=== PATIENT | female | born 1985 | race African-American/Black ===

== ENCOUNTER 2017-12-17 04:03 | Emergency (ER) | payer SELFPAY ==
[~2017-12-17] VITALS: Ht 162.6 cm; Wt 136.0 kg
[2017-12-17] MEDS ORDERED: SODIUM CHLORIDE 0.9% 1,000 ML IV ONE ×2 (05:04→08:31)
[2017-12-17] MEDS ORDERED: KETOROLAC 30MG/ML VIAL IV STA (05:04)
[2017-12-17] MEDS ORDERED: ONDANSETRON HCL 4MG/2ML INJ IV STA ×2 (05:04→05:50)
[2017-12-17 05:33] LABS: BASOPHILS % 0.8 % (0.0-2.0); EOSINOPHILS % 0.4 % (0.0-5.0); HEMOGLOBIN. 13.7 g/dL (12.0-16.0); LYMPHOCYTES % 18.9 % (20.0-50.0); MEAN CORPUSCULAR HEMOGLOBIN 28.8 pg (28.0-32.0); MEAN PLATELET VOLUME 7.8 fl (7.4-10.4); MONOCYTES % 4.2 % (2.0-8.0); NEUTROPHILS % 75.7 % (40.0-76.0); PLATELET 388 x1000/uL (130-400); RED BLOOD CELL COUNT 4.77 mill/uL (4.2-5.4); RED CELL DISTRIBUTION WIDTH 14.1 % (11.6-14.6)
[2017-12-17 05:45] LABS: CHLORIDE 101 mEq/L (98-107); INR 1.1; PROTHROMBIN TIME 10.7 sec (9.1-11.1)
[2017-12-17 05:51] LABS: ETHANOL BLOOD < 10 mg/dL
[2017-12-17 05:55] LABS: HCG SCREEN NEGATIVE
[2017-12-17 07:06] LABS: CLARITY URINE CLEAR (CLEAR); COLOR URINE YELLOW (YELLOW); KETONES URINE TRACE (NEGATIVE); LEUKOCYTE ESTERASE URINE NEGATIVE (NEGATIVE); NITRITE URINE NEGATIVE (NEGATIVE); OCCULT BLOOD URINE TRACE (NEGATIVE); PH URINE 8.5 (4.5-8.0); PROTEIN URINE NEGATIVE (NEGATIVE); SPECIFIC GRAVITY URINE 1.011 (1.005-1.030); UROBILINOGEN URINE 0.2 E.U./dL (0.2-1.0)
[2017-12-17] MEDS ORDERED: FAMOTIDINE 20MG/2ML VIAL IV ONE (08:45)
[2017-12-17] MEDS ORDERED: METOCLOPRAMIDE HCL 10MG/2ML VIAL IV ONE (08:45)
[2017-12-17] MEDS ORDERED: ACETAMINOPHEN WITH CODEINE 300/30MG TABLET PO ONE (10:00)
[2017-12-17 10:35] VITALS: BP 152/88
== END 2017-12-17 10:43 | disposition home or self-care (01) ==
LOC: ER 04:03
DX: R10.84 Generalized abdominal pain (principal); R11.2 Nausea with vomiting, unspecified; R03.0 Elevated blood-pressure reading, without diagnosis of hypertension; F12.90 Cannabis use, unspecified, uncomplicated; Z87.19 Personal history of other diseases of the digestive system
CPT/HCPCS: 36415; 74176; 80053; 81003; 83690; 84703; 85025; 85610; 96361; 96374; 96375; 99285; G0482; J1885; J2405; J2765; J3490; J7030; Z7610

== ENCOUNTER 2020-11-10 12:16 | Inpatient (IN) | payer MEDICAID, OTHER ==
[~2020-11-10] VITALS: Ht 162.6 cm; Wt 159.2 kg
[~2020-11-10 12:16] MED LIST: FAMO-135 MT; HYDR-4346 MT; IBUP-2028 MT; ONDA4TAB5 MT
[2020-11-10] MEDS ORDERED: SODIUM CHLORIDE 0.9% 1,000 ML IV ONE ×2 (12:45→13:00)
[2020-11-10] MEDS ORDERED: MORPHINE SULFATE 4 MG/ML CPJ (NOT FOR IM USE) IV STA ×2 (12:59→14:48)
[2020-11-10] MEDS ORDERED: ONDANSETRON HCL 4MG/2ML INJ IV STA ×2 (12:59→14:48)
[2020-11-10 14:23] LABS: BASOPHILS % 0.6 % (0.0-2.0); HEMATOCRIT. 39.7 % (36.0-48.0); HEMOGLOBIN. 13.7 g/dL (12.0-16.0); LYMPHOCYTES % 9.8 % (20.0-50.0); MEAN CORPUSCULAR HEMOGLOBIN 29.6 pg (28.0-32.0); MEAN CORPUSCULAR VOLUME 85.3 fL (81.0-99.0); MEAN PLATELET VOLUME 8.7 fl (7.4-10.4); MONOCYTES % 4.4 % (2.0-8.0); NEUTROPHILS % 85.2 % (40.0-76.0); PLATELET 399 x1000/uL (130-400); RED BLOOD CELL COUNT 4.65 mill/uL (4.2-5.4); RED CELL DISTRIBUTION WIDTH 13.6 % (11.6-14.6)
[2020-11-10 14:35] LABS: CHLORIDE 103 mEq/L (98-107)
[2020-11-10 14:46] LABS: INR 1.1; PROTHROMBIN TIME 11.7 sec (9.6-11.0)
[2020-11-10] MEDS ORDERED: PIPERACILLIN/TAZ 3.375G PREMIX 50 ML IV ONE (15:00)
[2020-11-10 15:37] LABS: CLARITY URINE CLEAR (CLEAR); COLOR URINE ORANGE (YELLOW); KETONES URINE 3+ (NEGATIVE); LEUKOCYTE ESTERASE URINE NEGATIVE (NEGATIVE); NITRITE URINE NEGATIVE (NEGATIVE); OCCULT BLOOD URINE 3+ (NEGATIVE); PROTEIN URINE NEGATIVE (NEGATIVE); SPECIFIC GRAVITY URINE 1.025 (1.005-1.030)
[2020-11-10 15:50] LABS: AMYLASE 64 IU/L (25-115)
[2020-11-10] MEDS ORDERED: MAGNESIUM/ALUMINUM HYDROXIDE/SIMETHICONE 30ML UDC PO PRN (17:45)
[2020-11-10] MEDS ORDERED: GUAIFENESIN 200MG/10ML SUGAR FREE UDC PO PRN (17:45)
[2020-11-10] MEDS ORDERED: DOCUSATE SODIUM 100MG CAPSULE PO PRN (17:45)
[2020-11-10] MEDS ORDERED: IPRATROPIUM/ALBUTEROL 0.5-3(2.5)MG/3ML NEB HHN PRN (17:45)
[2020-11-10] MEDS: CLONIDINE 0.1MG TABLET PO PRN ×2 (18:10→23:33)
[2020-11-10] MEDS: ENOXAPARIN 30MG/0.3ML SYR SUBCUT SCH (18:10)
[2020-11-10] MEDS: LORAZEPAM 2MG/ML CPJ IV PRN (18:10)
[2020-11-10] MEDS: MORPHINE SULFATE 2 MG/ML CPJ (NOT FOR IM USE) IV PRN ×2 (18:12→23:32)
[2020-11-10] MEDS: DEXT 5%/0.45% NACL 1000ML 1,000 ML IV SCH (18:12)
[2020-11-10] MEDS: SODIUM CHLORIDE 0.9% INJ 3ML FLUSH IVF SCH (22:00)
[2020-11-10] MEDS: PIPERACILLIN/TAZ 3.375G PREMIX 50 ML IV SCH (23:15)
[2020-11-11] VITALS (7 sets, daily range): BP systolic 137–183; BP diastolic 63–87
[2020-11-11] MEDS: DEXT 5%/0.45% NACL 1000ML 1,000 ML IV SCH (03:46)
[2020-11-11] MEDS: ACETAMINOPHEN 325MG TABLET PO PRN (04:11)
[2020-11-11 05:20] LABS: BASOPHILS % 0.6 % (0.0-2.0); EOSINOPHILS % 0.3 % (0.0-5.0); HEMATOCRIT. 39.3 % (36.0-48.0); HEMOGLOBIN. 13.4 g/dL (12.0-16.0); LYMPHOCYTES % 12.8 % (20.0-50.0); MEAN CORPUSCULAR HEMOGLOBIN 29.1 pg (28.0-32.0); MEAN CORPUSCULAR VOLUME 85.5 fL (81.0-99.0); MEAN PLATELET VOLUME 8.1 fl (7.4-10.4); MONOCYTES % 5.2 % (2.0-8.0); NEUTROPHILS % 81.1 % (40.0-76.0); PLATELET 358 x1000/uL (130-400); RED BLOOD CELL COUNT 4.59 mill/uL (4.2-5.4); RED CELL DISTRIBUTION WIDTH 13.7 % (11.6-14.6)
[2020-11-11 05:23] LABS: CHLORIDE 103 mEq/L (98-107)
[2020-11-11] MEDS: PIPERACILLIN/TAZ 3.375G PREMIX 50 ML IV SCH (06:16)
[2020-11-11] MEDS: ENOXAPARIN 30MG/0.3ML SYR SUBCUT SCH (06:17)
[2020-11-11] MEDS: ONDANSETRON HCL 4MG/2ML INJ IV PRN ×3 (06:17→22:39)
[2020-11-11] MEDS: SODIUM CHLORIDE 0.9% INJ 3ML FLUSH IVF SCH ×3 (06:19→20:32)
[2020-11-11] MEDS: MORPHINE SULFATE 2 MG/ML CPJ (NOT FOR IM USE) IV PRN ×3 (11:09→22:39)
[2020-11-11 16:19] LABS: HEPATITIS B SURFACE ANTIGEN NEGATIVE
[2020-11-11] MEDS: HYDRALAZINE 20MG/ML VIAL IV PRN (16:42)
[2020-11-11] MEDS: ENOXAPARIN 40MG/0.4ML SYR SUBCUT SCH (18:19)
[2020-11-11] MEDS: PIPERACILLIN/TAZOBACTAM 3.375G in DEXT 5% WATER 50ML IV SCH (18:19)
[2020-11-11] MEDS: LORAZEPAM 2MG/ML CPJ IV PRN (20:31)
[2020-11-11] MEDS: DIPHENHYDRAMINE 50MG/ML VIAL IV PRN (20:33)
[2020-11-12] VITALS: BP 159/90
[2020-11-12] MEDS: ACETAMINOPHEN 325MG TABLET PO PRN ×2 (00:33→16:04)
[2020-11-12] MEDS: LORAZEPAM 2MG/ML CPJ IV PRN ×2 (02:29→20:41)
[2020-11-12] MEDS: DIPHENHYDRAMINE 50MG/ML VIAL IV PRN (02:32)
[2020-11-12 04:00] VITALS: BP 129/78
[2020-11-12] MEDS: PIPERACILLIN/TAZOBACTAM 3.375G in DEXT 5% WATER 50ML IV SCH ×3 (05:41→20:52)
[2020-11-12] MEDS: ENOXAPARIN 40MG/0.4ML SYR SUBCUT SCH ×2 (05:41→17:50)
[2020-11-12] MEDS: MORPHINE SULFATE 2 MG/ML CPJ (NOT FOR IM USE) IV PRN ×3 (05:41→17:50)
[2020-11-12] MEDS: DEXT 5%/0.45% NACL 1000ML 1,000 ML IV SCH ×2 (05:42→09:06)
[2020-11-12] MEDS: SODIUM CHLORIDE 0.9% INJ 3ML FLUSH IVF SCH ×3 (05:43→22:00)
[2020-11-12 07:30] LABS: CHLORIDE 103 mEq/L (98-107)
[2020-11-12 07:41] LABS: BASOPHILS % 0.4 % (0.0-2.0); EOSINOPHILS % 0.1 % (0.0-5.0); HEMATOCRIT. 40.3 % (36.0-48.0); HEMOGLOBIN. 13.5 g/dL (12.0-16.0); LYMPHOCYTES % 20.6 % (20.0-50.0); MEAN CORPUSCULAR HEMOGLOBIN 29.3 pg (28.0-32.0); MEAN CORPUSCULAR VOLUME 87.5 fL (81.0-99.0); MEAN PLATELET VOLUME 8.4 fl (7.4-10.4); MONOCYTES % 5.4 % (2.0-8.0); NEUTROPHILS % 73.5 % (40.0-76.0); PLATELET 352 x1000/uL (130-400); RED BLOOD CELL COUNT 4.61 mill/uL (4.2-5.4); RED CELL DISTRIBUTION WIDTH 13.8 % (11.6-14.6)
[2020-11-12 08:00] VITALS: BP 203/79
[2020-11-12 08:57] LABS: T4 FREE 1.26 ng/dL (0.76-1.46)
[2020-11-12] MEDS: CLONIDINE 0.1MG TABLET PO PRN ×2 (09:05→16:04)
[2020-11-12] MEDS: HYDRALAZINE 20MG/ML VIAL IV PRN (09:05)
[2020-11-12 12:00] VITALS: BP 171/96
[2020-11-12] MEDS ORDERED: KCL 20MEQ/100ML PREMIX 100 ML IV NR (12:00)
[2020-11-12] MEDS ORDERED: IOHEXOL-300 100 ML BOTTLE ONE (13:52)
[2020-11-12 15:21] LABS: CREATINE KINASE 138 IU/L (26-192)
[2020-11-12 15:22] LABS: CREATINE KINASE MB FRACTION < 1.0 ng/mL (0.5-3.6)
[2020-11-12 16:00] VITALS: BP 127/88
[2020-11-12 20:00] VITALS: BP 141/82
[2020-11-12 20:36] LABS: HEMATOCRIT 42.1 % (36.0-48.0); HEMOGLOBIN 14.3 g/dL (12.0-16.0); MEAN CORPUSCULAR HEMOGLOBIN 28.9 pg (28.0-32.0); MEAN CORPUSCULAR VOLUME 85.4 fL (81.0-99.0); PLATELET 329 x1000/uL (130-400); RED BLOOD CELL COUNT 4.93 mill/uL (4.2-5.4); RED CELL DISTRIBUTION WIDTH 13.9 % (11.6-14.6)
[2020-11-12 20:47] LABS: CHLORIDE 101 mEq/L (98-107)
[2020-11-13] VITALS: BP 141/90
[2020-11-13] MEDS: MORPHINE SULFATE 2 MG/ML CPJ (NOT FOR IM USE) IV PRN ×3 (02:07→20:52)
[2020-11-13] MEDS: LORAZEPAM 2MG/ML CPJ IV PRN ×2 (02:10→21:06)
[2020-11-13] MEDS: DIPHENHYDRAMINE 50MG/ML VIAL IV PRN ×2 (02:11→21:13)
[2020-11-13 04:00] VITALS: BP 157/94
[2020-11-13] MEDS: ONDANSETRON HCL 4MG/2ML INJ IV PRN ×2 (05:10→20:52)
[2020-11-13] MEDS: PIPERACILLIN/TAZOBACTAM 3.375G in DEXT 5% WATER 50ML IV SCH ×3 (05:11→21:00)
[2020-11-13] MEDS: SODIUM CHLORIDE 0.9% INJ 3ML FLUSH IVF SCH ×3 (05:12→22:00)
[2020-11-13] MEDS: ENOXAPARIN 40MG/0.4ML SYR SUBCUT SCH ×2 (05:12→17:50)
[2020-11-13 07:54] LABS: CHLORIDE 99 mEq/L (98-107)
[2020-11-13 07:59] LABS: BASOPHILS % 0.6 % (0.0-2.0); EOSINOPHILS % 0.3 % (0.0-5.0); HEMATOCRIT. 43.2 % (36.0-48.0); HEMOGLOBIN. 14.6 g/dL (12.0-16.0); LYMPHOCYTES % 19.6 % (20.0-50.0); MEAN CORPUSCULAR HEMOGLOBIN 29.2 pg (28.0-32.0); MEAN CORPUSCULAR VOLUME 86.6 fL (81.0-99.0); MEAN PLATELET VOLUME 8.6 fl (7.4-10.4); MONOCYTES % 7.4 % (2.0-8.0); NEUTROPHILS % 72.1 % (40.0-76.0); PLATELET 369 x1000/uL (130-400); RED BLOOD CELL COUNT 4.99 mill/uL (4.2-5.4); RED CELL DISTRIBUTION WIDTH 13.7 % (11.6-14.6)
[2020-11-13 08:00] VITALS: BP 151/89
[2020-11-13 08:04] LABS: CREATINE KINASE 99 IU/L (26-192)
[2020-11-13 08:06] LABS: CREATINE KINASE MB FRACTION < 1.0 ng/mL (0.5-3.6)
[2020-11-13] MEDS ORDERED: DEXTROSE 50% WATER 50ML SYRINGE IV PRN (08:45)
[2020-11-13] MEDS: DEXT 5%/0.45% NACL 1000ML 1,000 ML IV SCH ×2 (09:18→17:18)
[2020-11-13] MEDS ORDERED: NALOXONE HCL 0.4MG/ML VIAL IV PRN (09:30)
[2020-11-13] MEDS ORDERED: POTASSIUM CHLORIDE 20MEQ TABLET SR PO NR (10:00)
[2020-11-13] MEDS: HYDRALAZINE 20MG/ML VIAL IV PRN (11:32)
[2020-11-13 12:00] VITALS: BP 166/99
[2020-11-13] MEDS: BLOOD SUGAR DIAGNOSTIC STRIP TEST SCH ×3 (13:09→21:10)
[2020-11-13] MEDS: INSULIN LISPRO 100 UNITS/ML SUBCUT SCH ×3 (13:13→21:00)
[2020-11-13 16:00] VITALS: BP 145/82
[2020-11-13] MEDS: METOCLOPRAMIDE HCL 10MG/2ML VIAL IV SCH ×2 (17:43→23:05)
[2020-11-13 18:59] LABS: CREATINE KINASE 86 IU/L (26-192)
[2020-11-13 19:01] LABS: CREATINE KINASE MB FRACTION < 1.0 ng/mL (0.5-3.6)
[2020-11-13 20:00] VITALS: BP 174/106
[2020-11-13] MEDS: CLONIDINE 0.1MG TABLET PO PRN (20:52)
[2020-11-13] MEDS: ACETAMINOPHEN 325MG TABLET PO PRN (20:53)
[2020-11-14] VITALS: BP 148/84
[2020-11-14 04:00] VITALS: BP 167/67
[2020-11-14] MEDS: DEXT 5%/0.45% NACL 1000ML 1,000 ML IV SCH ×2 (04:03→12:22)
[2020-11-14] MEDS: METOCLOPRAMIDE HCL 10MG/2ML VIAL IV SCH ×4 (05:15→23:00)
[2020-11-14] MEDS: SODIUM CHLORIDE 0.9% INJ 3ML FLUSH IVF SCH ×2 (05:15→22:00)
[2020-11-14] MEDS: CLONIDINE 0.1MG TABLET PO PRN (05:15)
[2020-11-14] MEDS: PIPERACILLIN/TAZOBACTAM 3.375G in DEXT 5% WATER 50ML IV SCH ×3 (05:15→21:35)
[2020-11-14] MEDS: MORPHINE SULFATE 2 MG/ML CPJ (NOT FOR IM USE) IV PRN ×2 (05:24→21:35)
[2020-11-14] MEDS: BLOOD SUGAR DIAGNOSTIC STRIP TEST SCH ×4 (05:26→21:55)
[2020-11-14] MEDS: ENOXAPARIN 40MG/0.4ML SYR SUBCUT SCH ×2 (05:26→18:11)
[2020-11-14] MEDS: INSULIN LISPRO 100 UNITS/ML SUBCUT SCH ×4 (05:39→22:00)
[2020-11-14 08:00] VITALS: BP 146/86
[2020-11-14 09:16] LABS: BASOPHILS % 0.7 % (0.0-2.0); EOSINOPHILS % 0.1 % (0.0-5.0); HEMATOCRIT. 39.8 % (36.0-48.0); LYMPHOCYTES % 20.1 % (20.0-50.0); MEAN CORPUSCULAR HEMOGLOBIN 29.9 pg (28.0-32.0); MEAN CORPUSCULAR VOLUME 84.8 fL (81.0-99.0); MEAN PLATELET VOLUME 8.1 fl (7.4-10.4); MONOCYTES % 8.6 % (2.0-8.0); NEUTROPHILS % 70.5 % (40.0-76.0); PLATELET 337 x1000/uL (130-400)
[2020-11-14 09:26] LABS: CHLORIDE 98 mEq/L (98-107)
[2020-11-14] MEDS ORDERED: POTASSIUM CHLORIDE 20MEQ TABLET SR PO NR (11:00)
[2020-11-14 12:00] VITALS: BP 115/70
[2020-11-14 16:00] VITALS: BP 124/87
[2020-11-14 17:36] LABS: HEMATOCRIT 39.8 % (36.0-48.0); HEMOGLOBIN 13.9 g/dL (12.0-16.0); MEAN CORPUSCULAR HEMOGLOBIN 29.7 pg (28.0-32.0); MEAN CORPUSCULAR VOLUME 84.8 fL (81.0-99.0); PLATELET 309 x1000/uL (130-400); RED BLOOD CELL COUNT 4.69 mill/uL (4.2-5.4); RED CELL DISTRIBUTION WIDTH 13.8 % (11.6-14.6)
[2020-11-14 17:53] LABS: CHLORIDE 99 mEq/L (98-107)
[2020-11-14 20:00] VITALS: BP 128/83
[2020-11-14] MEDS: LORAZEPAM 2MG/ML CPJ IV PRN (21:41)
[2020-11-14] MEDS: DIPHENHYDRAMINE 50MG/ML VIAL IV PRN (22:59)
[2020-11-15] VITALS: BP 94/56
[2020-11-15 04:35] VITALS: BP 116/78
[2020-11-15] MEDS: METOCLOPRAMIDE HCL 10MG/2ML VIAL IV SCH ×4 (05:15→23:08)
[2020-11-15] MEDS: PIPERACILLIN/TAZOBACTAM 3.375G in DEXT 5% WATER 50ML IV SCH ×3 (05:15→21:25)
[2020-11-15] MEDS: BLOOD SUGAR DIAGNOSTIC STRIP TEST SCH ×4 (05:21→20:06)
[2020-11-15] MEDS: INSULIN LISPRO 100 UNITS/ML SUBCUT SCH ×4 (05:30→20:06)
[2020-11-15] MEDS: ENOXAPARIN 40MG/0.4ML SYR SUBCUT SCH ×2 (05:34→17:48)
[2020-11-15] MEDS: SODIUM CHLORIDE 0.9% INJ 3ML FLUSH IVF SCH ×3 (05:34→21:25)
[2020-11-15 08:00] VITALS: BP 131/84
[2020-11-15 08:39] LABS: BASOPHILS % 0.6 % (0.0-2.0); EOSINOPHILS % 1.3 % (0.0-5.0); LYMPHOCYTES % 26.2 % (20.0-50.0); MEAN PLATELET VOLUME 8.5 fl (7.4-10.4); MONOCYTES % 9.6 % (2.0-8.0); NEUTROPHILS % 62.3 % (40.0-76.0); PLATELET 304 x1000/uL (130-400); RED BLOOD CELL COUNT 4.82 mill/uL (4.2-5.4); RED CELL DISTRIBUTION WIDTH 13.8 % (11.6-14.6)
[2020-11-15 08:47] LABS: CHLORIDE 101 mEq/L (98-107)
[2020-11-15] MEDS ORDERED: POTASSIUM CHLORIDE 20MEQ TABLET SR PO SCH (09:45)
[2020-11-15] MEDS: DEXT 5%/0.45% NACL 1000ML 1,000 ML IV SCH ×3 (10:39→17:45)
[2020-11-15 12:00] VITALS: BP 145/93
[2020-11-15] MEDS: MORPHINE SULFATE 2 MG/ML CPJ (NOT FOR IM USE) IV PRN ×2 (13:59→23:32)
[2020-11-15] MEDS: ONDANSETRON HCL 4MG/2ML INJ IV PRN ×2 (15:15→21:25)
[2020-11-15 16:00] VITALS: BP 154/98
[2020-11-15] MEDS: LORAZEPAM 2MG/ML CPJ IV PRN ×2 (16:45→23:50)
[2020-11-15] MEDS: CLONIDINE 0.1MG TABLET PO PRN (19:56)
[2020-11-15] MEDS: DIPHENHYDRAMINE 50MG/ML VIAL IV PRN (19:56)
[2020-11-15] MEDS: ACETAMINOPHEN 325MG TABLET PO PRN (19:57)
[2020-11-15 20:00] VITALS: BP 165/98
[2020-11-15 23:51] LABS: CHLORIDE 98 mEq/L (98-107); HEMATOCRIT 42.2 % (36.0-48.0); HEMOGLOBIN 14.6 g/dL (12.0-16.0); MEAN CORPUSCULAR HEMOGLOBIN 29.5 pg (28.0-32.0); MEAN CORPUSCULAR VOLUME 85.2 fL (81.0-99.0); PLATELET 353 x1000/uL (130-400); RED BLOOD CELL COUNT 4.96 mill/uL (4.2-5.4); RED CELL DISTRIBUTION WIDTH 13.6 % (11.6-14.6)
[2020-11-16] VITALS: BP 158/89
[2020-11-16] MEDS: DEXT 5%/0.45% NACL 1000ML 1,000 ML IV SCH ×2 (03:45→13:43)
[2020-11-16] MEDS: CLONIDINE 0.1MG TABLET PO PRN (03:52)
[2020-11-16] MEDS: ONDANSETRON HCL 4MG/2ML INJ IV PRN (03:52)
[2020-11-16 04:00] VITALS: BP 162/96
[2020-11-16] MEDS: METOCLOPRAMIDE HCL 10MG/2ML VIAL IV SCH ×3 (05:22→17:47)
[2020-11-16] MEDS: ENOXAPARIN 40MG/0.4ML SYR SUBCUT SCH ×2 (05:22→17:47)
[2020-11-16] MEDS: MORPHINE SULFATE 2 MG/ML CPJ (NOT FOR IM USE) IV PRN (05:23)
[2020-11-16] MEDS: LORAZEPAM 2MG/ML CPJ IV PRN ×3 (05:34→20:34)
[2020-11-16] MEDS: BLOOD SUGAR DIAGNOSTIC STRIP TEST SCH ×4 (05:35→20:25)
[2020-11-16] MEDS: INSULIN LISPRO 100 UNITS/ML SUBCUT SCH ×4 (05:35→20:31)
[2020-11-16] MEDS: SODIUM CHLORIDE 0.9% INJ 3ML FLUSH IVF SCH ×3 (05:36→20:34)
[2020-11-16 08:00] VITALS: BP 114/69
[2020-11-16 12:00] VITALS: BP 110/75
[2020-11-16 12:27] LABS: BASOPHILS % 0.4 % (0.0-2.0); EOSINOPHILS % 0.7 % (0.0-5.0); HEMATOCRIT. 39.5 % (36.0-48.0); HEMOGLOBIN. 13.5 g/dL (12.0-16.0); LYMPHOCYTES % 19.3 % (20.0-50.0); MEAN CORPUSCULAR VOLUME 84.8 fL (81.0-99.0); MEAN PLATELET VOLUME 8.2 fl (7.4-10.4); NEUTROPHILS % 72.6 % (40.0-76.0); PLATELET 310 x1000/uL (130-400); RED BLOOD CELL COUNT 4.66 mill/uL (4.2-5.4); RED CELL DISTRIBUTION WIDTH 13.9 % (11.6-14.6)
[2020-11-16 12:34] LABS: CHLORIDE 99 mEq/L (98-107)
[2020-11-16 16:00] VITALS: BP 115/81
[2020-11-16 20:00] VITALS: BP 100/62
[2020-11-17] VITALS (7 sets, daily range): BP systolic 105–151; BP diastolic 57–94
[2020-11-17] MEDS: METOCLOPRAMIDE HCL 10MG/2ML VIAL IV SCH ×5 (00:13→23:50)
[2020-11-17] MEDS: ONDANSETRON HCL 4MG/2ML INJ IV PRN (01:47)
[2020-11-17] MEDS: MORPHINE SULFATE 2 MG/ML CPJ (NOT FOR IM USE) IV PRN (01:47)
[2020-11-17] MEDS: SODIUM CHLORIDE 0.9% INJ 3ML FLUSH IVF SCH ×3 (05:17→21:10)
[2020-11-17] MEDS: ENOXAPARIN 40MG/0.4ML SYR SUBCUT SCH ×2 (05:18→17:03)
[2020-11-17] MEDS: BLOOD SUGAR DIAGNOSTIC STRIP TEST SCH ×4 (05:25→21:10)
[2020-11-17] MEDS: INSULIN LISPRO 100 UNITS/ML SUBCUT SCH ×4 (05:25→21:08)
[2020-11-17] MEDS: ACETAMINOPHEN 325MG TABLET PO PRN (21:15)
[2020-11-18] VITALS: BP 127/80
[2020-11-18 04:00] VITALS: BP 107/68
[2020-11-18] MEDS: METOCLOPRAMIDE HCL 10MG/2ML VIAL IV SCH (05:21)
[2020-11-18] MEDS: SODIUM CHLORIDE 0.9% INJ 3ML FLUSH IVF SCH (05:23)
[2020-11-18] MEDS: ENOXAPARIN 40MG/0.4ML SYR SUBCUT SCH (05:23)
[2020-11-18] MEDS: BLOOD SUGAR DIAGNOSTIC STRIP TEST SCH (06:28)
[2020-11-18 08:00] VITALS: BP 139/91
== END 2020-11-18 09:22 | disposition left against medical advice (07) ==
LOC: ER 13:04 → MICUSO 17:07 → EDBEDREQ 17:09 → 8WST 11-11 07:33 → MICUSO 11-11 08:21 → 8WST 11-11 09:29
PROVIDERS: ADMIT Internal Medicine; ATTEND Internal Medicine
DX: K80.00 Calculus of gallbladder with acute cholecystitis without obstruction (principal); R65.10 Systemic inflammatory response syndrome (SIRS) of non-infectious origin without acute organ dysfunction; K76.0 Fatty (change of) liver, not elsewhere classified; Z68.44 Body mass index [BMI] 60.0-69.9, adult; E66.01 Morbid (severe) obesity due to excess calories; F17.200 Nicotine dependence, unspecified, uncomplicated; K21.9 Gastro-esophageal reflux disease without esophagitis; R00.1 Bradycardia, unspecified; B17.9 Acute viral hepatitis, unspecified; E11.9 Type 2 diabetes mellitus without complications; I10 Essential (primary) hypertension; Z71.3 Dietary counseling and surveillance; Z98.891 History of uterine scar from previous surgery
CPT/HCPCS: 36415; 74177; 76700; 76705; 80048; 80053; 80061; 80076; 81003; 82150; 82550; 82553; 82962; 83036; 83605; 83615; 83880; 84439; 84443; 84484; 85025; 85027; 85379; 86705; 86709; 86803; 87340; 93005; 93306; 99291; C1893; J0360; J1200; J1650; J1815; J2060; J2270; J2405; J2543; J2765; J3480; J7030; J7060; Q9967

== ENCOUNTER 2020-11-20 19:56 | Inpatient (IN) | payer OTHER ==
[~2020-11-20] VITALS: Ht 165.1 cm; Wt 143.8 kg
[2020-11-20] MEDS ORDERED: ONDANSETRON HCL 4MG/2ML INJ IV STA (20:43)
[2020-11-20] MEDS ORDERED: MORPHINE SULFATE 4 MG/ML CPJ (NOT FOR IM USE) IV STA (20:43)
[2020-11-20] MEDS ORDERED: SODIUM CHLORIDE 0.9% 1,000 ML IV ONE (20:45)
[2020-11-20 21:07] LABS: BASOPHILS % 1.1 % (0.0-2.0); EOSINOPHILS % 1.5 % (0.0-5.0); HEMATOCRIT. 38.3 % (36.0-48.0); MEAN CORPUSCULAR HEMOGLOBIN 29.4 pg (28.0-32.0); MEAN CORPUSCULAR VOLUME 86.5 fL (81.0-99.0); MEAN PLATELET VOLUME 8.6 fl (7.4-10.4); MONOCYTES % 9.5 % (2.0-8.0); NEUTROPHILS % 58.9 % (40.0-76.0); PLATELET 347 x1000/uL (130-400); RED BLOOD CELL COUNT 4.43 mill/uL (4.2-5.4); RED CELL DISTRIBUTION WIDTH 13.8 % (11.6-14.6)
[2020-11-20 21:16] LABS: CHLORIDE 101 mEq/L (98-107)
[2020-11-20 21:23] LABS: ETHANOL BLOOD < 10 mg/dL
[2020-11-20] MEDS ORDERED: CEFTRIAXONE 1 G PREMIX 50 ML IV ONE (23:00)
[2020-11-20] MEDS ORDERED: IOHEXOL-300 100 ML BOTTLE ONE (23:21)
[2020-11-20 23:43] LABS: CLARITY URINE CLEAR (CLEAR); COLOR URINE YELLOW (YELLOW); KETONES URINE NEGATIVE (NEGATIVE); LEUKOCYTE ESTERASE URINE NEGATIVE (NEGATIVE); NITRITE URINE NEGATIVE (NEGATIVE); OCCULT BLOOD URINE NEGATIVE (NEGATIVE); PH URINE 6.5 (4.5-8.0); PROTEIN URINE NEGATIVE (NEGATIVE); SPECIFIC GRAVITY URINE 1.059 (1.005-1.030); UROBILINOGEN URINE 0.2 E.U./dL (0.2-1.0)
[2020-11-21 00:13] LABS: *AMPHETAMINES SCREEN URINE NEGATIVE (NEGATIVE)
[2020-11-21 00:14] LABS: *BARBITURATES SCREEN URINE NEGATIVE (NEGATIVE); *BENZODIAZEPINES SCREEN URINE NEGATIVE (NEGATIVE); *COCAINE SCREEN URINE NEGATIVE (NEGATIVE); METHADONE URINE SCREEN NEGATIVE (NEGATIVE); PHENCYCLIDINE URINE SCREEN NEGATIVE (NEGATIVE)
[2020-11-21 00:30] LABS: OPIATES URINE SCREEN PRESUMTIVE POSITIVE (NEGATIVE)
[2020-11-21] MEDS ORDERED: ACETAMINOPHEN 325MG TABLET PO ONE (00:30)
[2020-11-21 00:31] LABS: CANNABINOID URINE SCREEN PRESUMTIVE POSITIVE (NEGATIVE)
[2020-11-21] MEDS ORDERED: MORPHINE SULFATE 4 MG/ML CPJ (NOT FOR IM USE) IV ONE (02:15)
[2020-11-21 09:12] VITALS: BP 140/59
[2020-11-21] MEDS ORDERED: ONDANSETRON HCL 4MG/2ML INJ IV PRN (10:15)
[2020-11-21] MEDS ORDERED: DEXTROSE 50% WATER 50ML SYRINGE IV PRN (10:15)
[2020-11-21] MEDS ORDERED: NALOXONE HCL 0.4MG/ML VIAL IV PRN (10:30)
[2020-11-21] MEDS: OMEPRAZOLE 20MG CAPSULE EXTENDED RELEASE PO SCH (10:55)
[2020-11-21 11:32] VITALS: BP 140/59
[2020-11-21 11:44] VITALS: BP 137/75
[2020-11-21] MEDS: METOCLOPRAMIDE HCL 10MG/2ML VIAL IV SCH ×2 (11:56→17:53)
[2020-11-21] MEDS: HYDROCODONE/ACETAMINOPHEN 5/325MG TABLET PO PRN ×2 (11:57→17:57)
[2020-11-21] MEDS: DOCUSATE SODIUM 100MG CAPSULE PO SCH ×2 (11:57→17:50)
[2020-11-21] MEDS: INSULIN GLARGINE UD 100 UNITS/ML SYR SUBCUT SCH ×2 (12:01→21:21)
[2020-11-21] MEDS: BLOOD SUGAR DIAGNOSTIC STRIP TEST SCH ×3 (12:43→21:21)
[2020-11-21] MEDS: INSULIN LISPRO 100 UNITS/ML SUBCUT SCH ×3 (12:55→21:20)
[2020-11-21] MEDS ORDERED: PNEUMOCOCCAL 23-VAL P-SAC VAC 0.5 ML IM ONE (16:00)
[2020-11-21 16:02] VITALS: BP 116/69
[2020-11-21 20:00] VITALS: BP 132/73
[2020-11-22] VITALS: BP 129/91
[2020-11-22] MEDS: METOCLOPRAMIDE HCL 10MG/2ML VIAL IV SCH ×3 (00:30→13:08)
[2020-11-22] MEDS: BLOOD SUGAR DIAGNOSTIC STRIP TEST SCH ×2 (06:07→12:37)
[2020-11-22] MEDS: OMEPRAZOLE 20MG CAPSULE EXTENDED RELEASE PO SCH (06:56)
[2020-11-22 08:00] VITALS: BP 143/83
[2020-11-22] MEDS: INSULIN LISPRO 100 UNITS/ML SUBCUT SCH ×2 (08:53→13:17)
[2020-11-22] MEDS: DOCUSATE SODIUM 100MG CAPSULE PO SCH (08:53)
[2020-11-22] MEDS: INSULIN GLARGINE UD 100 UNITS/ML SYR SUBCUT SCH (10:21)
[2020-11-22 12:00] VITALS: BP 131/68
[2020-11-22] MEDS ORDERED: INSLIS SUBCUT (15:36)
[2020-11-22] MEDS ORDERED: LANTUSUD SUBCUT (15:36)
[2020-11-22] MEDS ORDERED: LANC-335 MC (15:36)
[2020-11-22] MEDS ORDERED: [UNRECOGNIZED DRUG - CODE] MC (15:36)
[2020-11-22] MEDS ORDERED: DOCU-150 PO (15:36)
[2020-11-22 15:48] VITALS: BP 131/68
[2020-11-22 16:00] VITALS: BP 157/97
[2020-11-22] MEDS ORDERED: INSULIN GLARGINE UD 100 UNITS/ML SYR SUBCUT SCH (22:00)
== END 2020-11-22 16:50 | disposition home or self-care (01) | DRG 48 ==
LOC: ER 19:59 → 6WST 11-21 07:07 → ENRESERV 11-21 07:27
PROVIDERS: ADMIT Internal Medicine; ATTEND Internal Medicine
DX: E11.43 Type 2 diabetes mellitus with diabetic autonomic (poly)neuropathy (principal); K76.0 Fatty (change of) liver, not elsewhere classified; Z68.43 Body mass index [BMI] 50.0-59.9, adult; E66.9 Obesity, unspecified; K31.84 Gastroparesis; K80.20 Calculus of gallbladder without cholecystitis without obstruction; K59.00 Constipation, unspecified; I10 Essential (primary) hypertension; Z71.3 Dietary counseling and surveillance; Z98.891 History of uterine scar from previous surgery
CPT/HCPCS: 36415; 71045; 74177; 76705; 80053; 80305; 80320; 81003; 82962; 83605; 83880; 84484; 85025; 86850; 86900; 90732; 93005; 99285; J0696; J1815; J2270; J2405; J2765; J7030; Q9967; G0480

== ENCOUNTER 2022-10-21 11:43 | Emergency (ER) | payer OTHER ==
[~2022-10-21] VITALS: Ht 170.2 cm; Wt 132.0 kg
[~2022-10-21 11:43] MED LIST changes: +BLOO-1733 MC; +DOCU-150 PO; +INSLIS SUBCUT; +LANC-335 MC; +LANTUSUD SUBCUT; +LEVO-65 MT
[2022-10-21 11:48] VITALS: TEMP 98.2; O2SAT 98
[2022-10-21] MEDS ORDERED: SODIUM CHLORIDE 0.9% 1,000 ML IV ONE (12:00)
[2022-10-21 12:49] LABS: BASOPHILS % 1.3 % (0.0-2.0); EOSINOPHILS % 1.1 % (0.0-5.0); HEMOGLOBIN. 14.1 g/dL (12.0-16.0); LYMPHOCYTES % 33.1 % (20.0-50.0); MEAN CORPUSCULAR HEMOGLOBIN 29.4 pg (28.0-32.0); MEAN CORPUSCULAR HGB CONC 34.5 g/dL (31.0-37.0); MEAN CORPUSCULAR VOLUME 85.3 fL (81.0-99.0); MEAN PLATELET VOLUME 8.2 fl (7.4-10.4); MONOCYTES % 7.4 % (2.0-8.0); NEUTROPHILS % 57.1 % (40.0-76.0); PLATELET 280 x1000/uL (130-400); RED BLOOD CELL COUNT 4.81 mill/uL (4.2-5.4); RED CELL DISTRIBUTION WIDTH 13.4 % (11.6-14.6); WHITE BLOOD COUNT 7.6 x1000/uL (4.5-11.0)
[2022-10-21 12:58] LABS: CHLORIDE 103 mEq/L (98-107); INDEX HEMOLYSI 1 (1-3); INDEX ICTERIC 1 (1-4); INDEX LIPEMIC 1 (1-3); POTASSIUM 3.4 mEq/L (3.5-5.1); SODIUM 134 mEq/L (136-145)
[2022-10-21 13:00] LABS: INR 1.1; PROTHROMBIN TIME 11.4 sec (9.6-11.0)
[2022-10-21 13:08] LABS: ALANINE AMINOTRANSFERASE 47 IU/L (13-61); ALBUMIN 3.5 g/dL (3.4-5.0); ASPARTATE AMINOTRANSFERASE 32 IU/L (15-37); BILIRUBIN TOTAL 0.4 mg/dL (0.1-1.0); CALCIUM 8.6 mg/dL (8.5-10.1); CARBON DIOXIDE 25 mEq/L (21-32); CREATININE 0.5 mg/dL (0.6-1.3); GLUCOSE 280 mg/dL (70-105); PROTEIN TOTAL 7.6 g/dL (6.0-8.3); TROPONIN I HIGH SENSITIVITY 6 ng/L (<54); UREA NITROGEN BLOOD 7 mg/dL (7-21)
[2022-10-21] MEDS ORDERED: HYDRALAZINE 20MG/ML VIAL IV ONE ×2 (17:45→19:45)
[2022-10-21] MEDS ORDERED: ACETAMINOPHEN 325MG TABLET PO NR (18:45)
[2022-10-21 19:35] VITALS: BP 167/98; PULSE 105; RESP 14
== END 2022-10-21 19:50 | disposition short-term general hospital (02) ==
LOC: ER 11:43 → CANBEDREQ 14:39 → ER 19:50
DX: E11.65 Type 2 diabetes mellitus with hyperglycemia (principal); I10 Essential (primary) hypertension; Z90.49 Acquired absence of other specified parts of digestive tract; Z98.890 Other specified postprocedural states
CPT/HCPCS: 80053; 85025; 85610; 84484; 36415; 71045; 70450; 93005; 96361; 96374; 99285; J0360; J7030; Z7610 ×3

== ENCOUNTER 2024-06-19 13:59 | Emergency (ER) | payer OTHER ==
[~2024-06-19] VITALS: Ht 160 cm; Wt 146.0 kg
[~2024-06-19 13:59] MED LIST changes: -DOCU-150 PO; +DOCU-422 PO
[2024-06-19 14:03] VITALS: O2SAT 100
[2024-06-19 15:19] LABS: EOSINOPHILS % 0.9 % (0.0-5.0); HEMATOCRIT. 41.7 % (36.0-48.0); LYMPHOCYTES % 24.9 % (20.0-50.0); MEAN CORPUSCULAR HGB CONC 33.6 g/dL (31.0-37.0); MEAN CORPUSCULAR VOLUME 86.4 fL (81.0-99.0); MEAN PLATELET VOLUME 8.7 fl (7.4-10.4); MONOCYTES % 5.7 % (2.0-8.0); NEUTROPHILS % 67.5 % (40.0-76.0); PLATELET 347 x1000/uL (130-400); RED BLOOD CELL COUNT 4.83 mill/uL (4.2-5.4); WHITE BLOOD COUNT 11.5 x1000/uL (4.5-11.0)
[2024-06-19 15:22] LABS: INR 1.1; PROTHROMBIN TIME 11.4 sec (9.6-11.0)
[2024-06-19 15:23] LABS: CHLORIDE 99 mEq/L (98-107); POTASSIUM 4.1 mEq/L (3.5-5.1); SODIUM 137 mEq/L (136-145)
[2024-06-19 15:24] LABS: CALCIUM 9.6 mg/dL (8.7-10.4); CARBON DIOXIDE 26 mEq/L (21-32)
[2024-06-19 15:29] LABS: CREATININE 0.9 mg/dL (0.6-1.0); GLUCOSE 246 mg/dL (70-105); UREA NITROGEN BLOOD 11 mg/dL (9-23)
[2024-06-19 15:30] LABS: TROPONIN I HIGH SENSITIVITY 4 ng/L (3.0-34)
[2024-06-19] MEDS: SODIUM CHLORIDE 0.9% 1,000 ML IV ONE (15:49)
[2024-06-19 16:20] LABS: CLARITY URINE CLEAR (CLEAR); COLOR URINE YELLOW (YELLOW); GLUCOSE URINE 3+ (NEGATIVE); KETONES URINE TRACE (NEGATIVE); LEUKOCYTE ESTERASE URINE NEGATIVE (NEGATIVE); NITRITE URINE NEGATIVE (NEGATIVE); OCCULT BLOOD URINE NEGATIVE (NEGATIVE); PH URINE 5.5 (4.5-8.0); PROTEIN URINE NEGATIVE (NEGATIVE); SPECIFIC GRAVITY URINE 1.037 (1.005-1.030); UROBILINOGEN URINE 0.2 E.U./dL (0.2-1.0)
[2024-06-19 17:06] LABS: HCG SCREEN NEGATIVE
[2024-06-19 17:12] LABS: BACTERIA URINE 1+; RBC URINE 0-2 /hpf (0-2); SQUAMOUS EPITHELIAL CELL URINE 1+ /lpf (RARE/1+); WBC URINE 0-2 /hpf (0-2)
[2024-06-19 18:07] VITALS: BP 154/97; PULSE 98; RESP 21; TEMP 36.6; O2SAT 97
== END 2024-06-19 18:20 | disposition home or self-care (01) ==
LOC: ER 13:59
DX: R55 Syncope and collapse (principal); E11.9 Type 2 diabetes mellitus without complications; E87.8 Other disorders of electrolyte and fluid balance, not elsewhere classified; I10 Essential (primary) hypertension; F12.90 Cannabis use, unspecified, uncomplicated
CPT/HCPCS: 99285; 71045; 80048; 81003; 82962; 84703; 85025; 85610; 84484; 36415; 93005; J7030